=== PATIENT | male | born 1990 | race Caucasian/White ===

== ENCOUNTER 2016-12-17 20:47 | Emergency (ER) | payer BC ==
[~2016-12-17] VITALS: Ht 172.7 cm; Wt 77.0 kg
[2016-12-17 22:04] VITALS: BP 122/71
[2016-12-17] MEDS ORDERED: IBUPROFEN 800 MG TABLET PO ONE (22:15)
== END 2016-12-17 22:06 | disposition home or self-care (01) ==
LOC: EMS 20:50
DX: T63.301A Toxic effect of unspecified spider venom, accidental (unintentional), initial encounter (principal); Y92.89 Other specified places as the place of occurrence of the external cause
CPT/HCPCS: 99282